=== PATIENT | male | born 1980 | race Hispanic/Latino ===

== ENCOUNTER 2018-11-11 15:18 | Emergency (ER) | payer OTHER ==
[2018-11-11 16:03] LABS: RAPID GROUP A STREP NEGATIVE (NEGATIVE)
== END 2018-11-11 16:22 | disposition home or self-care (01) ==
LOC: EDH 15:18 → EEVIPCON 15:18 → EDH 16:22
DX: J02.9 Acute pharyngitis, unspecified (principal); R68.83 Chills (without fever)
CPT/HCPCS: 87804; 87880